=== PATIENT | female | born 1985 | race Caucasian/White ===

== ENCOUNTER 2018-05-14 04:21 | Inpatient (IN) | payer OTHER, SELFPAY ==
[~2018-05-14] VITALS: Ht 154.9 cm; Wt 88.5 kg
[2018-05-14] MEDS ORDERED: OXYTOCIN/0.9 % SODIUM CHLORIDE 1,000 ML IV SCH (12:45)
[2018-05-14] MEDS ORDERED: DINOPROSTONE 10 MG SUPP VG ONE (12:45)
[2018-05-14] MEDS ORDERED: NALBUPHINE HCL 10 MG/ML AMP IVP PRN (12:45)
[2018-05-14] MEDS ORDERED: TERBUTALINE SULFATE 1 MG/ML VIAL SUBCUT ONE (12:45)
[2018-05-14 12:52] VITALS: BP_SYST 127
[2018-05-14] MEDS ORDERED: AMPICILLIN SODIUM 2 GM in NS 100 ML IV ONE (13:00)
[2018-05-14 13:10] LABS: BASOPHILS # (AUTO) 0.1 K/uL (0.0-0.2); BASOPHILS % (AUTO) 0.9 % (0.0-2.0); EOSINOPHILS % (AUTO) 0.1 % (0.0-4.0); HEMOGLOBIN 11.3 g/dL (12.0-16.0); LYMPHOCYTES # (AUTO) 1.7 K/uL (1.0-5.5); LYMPHOCYTES % (AUTO) 26.8 % (20.5-51.5); MEAN CORPUSCULAR HEMOGLOBIN 32 pg (27-31); MEAN CORPUSCULAR HGB CONC 34 % (32-36); MEAN CORPUSCULAR VOLUME 92 fL (79.0-98.0); MONOCYTES # (AUTO) 0.4 K/uL (0.0-1.0); MONOCYTES % (AUTO) 6.6 % (1.7-9.3); NEUTROPHILS # (AUTO) 4.1 K/uL (1.8-7.7); NEUTROPHILS % (AUTO) 65.6 % (40.0-70.0); PLATELET COUNT (AUTO) 228 K/uL (130-430); RED BLOOD CELL COUNT(AUTO) 3.59 MIL/uL (4.2-6.2); WHITE BLOOD COUNT (AUTO) 6.3 K/uL (4.8-10.8)
[2018-05-14] MEDS: LR 1,000 ML IV SCH (20:30)
[2018-05-15] MEDS ORDERED: AMPICILLIN SODIUM 2 GM VIAL ONE (01:25)
[2018-05-15] MEDS: LR 1,000 ML IV SCH ×2 (04:30→08:30)
[2018-05-15] MEDS: AMPICILLIN SODIUM 1 GM in NS 50 ML IV SCH ×2 (05:30→09:30)
[2018-05-15] MEDS ORDERED: AMPICILLIN SODIUM 1 GM VIAL ONE (05:34)
[2018-05-15] MEDS ORDERED: fentaNYL CITRATE/PF 100 MCG/2 ML AMP ONE (08:07)
[2018-05-15] MEDS ORDERED: ROPIVACAINE 0.2% 100 ML ONE (08:08)
[2018-05-15] MEDS ORDERED: CEFAZOLIN 2 GM IVPB PREMIX 50 ML IV ONE (16:30)
[2018-05-15 16:35] LABS: BILIRUBIN,URINE NEGATIVE (NEGATIVE); BLOOD, URINE 2+ (NEGATIVE); CLARITY/URINE CLEAR (CLEAR); COLOR,URINE YELLOW (YELLOW); GLUCOSE,URINE NEGATIVE (NEGATIVE); KETONES,URINE 3+ (NEGATIVE); LEUKOCYTE ESTERASE ,URINE NEGATIVE (NEGATIVE); NITRITE, URINE NEGATIVE (NEGATIVE); PROTEIN URINE TRACE (NEGATIVE); UROBILINOGEN,URINE 0.2 (0.2-1.0)
[2018-05-15 16:44] LABS: BACTERIA,URINE FEW /HPF (None Seen); WBC,URINE 0-3 /HPF (0-3)
[2018-05-15 16:45] LABS: MUCUS,URINE None Seen /LPF (None Seen)
[2018-05-15] MEDS ORDERED: NACL 0.9% 1,000 ML IV SCH (17:48)
[2018-05-15] MEDS ORDERED: METOCLOPRAMIDE HCL 10 MG/2 ML VIAL IVP PRN (18:00)
[2018-05-15] MEDS ORDERED: DIPHENHYDRAMINE INJ 50 MG/ML VIAL IM PRN (18:00)
[2018-05-15] MEDS ORDERED: MEPERIDINE HCL/PF 50 MG/ML AMP IVP PRN ×2 (18:00)
[2018-05-15] MEDS ORDERED: ONDANSETRON HCL 4 MG/2 ML VIAL IVP PRN (18:00)
[2018-05-15] MEDS ORDERED: NALOXONE HCL 0.4 MG/ML AMP (NARCAN) IVP PRN (18:00)
[2018-05-15] MEDS ORDERED: KETOROLAC TROMETHAMINE 60 MG/2 ML VIAL IM PRN (18:00)
[2018-05-15] MEDS ORDERED: MORPHINE SULFATE 10MG/10ML PF AMP EP SCH (18:00)
[2018-05-15] MEDS ORDERED: LR 1,000 ML IV SCH (18:03)
[2018-05-15] MEDS ORDERED: OXYTOCIN/0.9 % SODIUM CHLORIDE 1,000 ML IV ONE (18:03)
[2018-05-15] MEDS ORDERED: RHO(D) IMMUNE GLOBULIN/MALTOSE 1500 UNITS/1.3 ML (WINHRO) IM PRN (18:15)
[2018-05-15] MEDS ORDERED: LANOLIN 7 GM OINT. TP PRN (18:15)
[2018-05-15] MEDS ORDERED: DOCUSATE SODIUM 100 MG CAPSULE PO PRN (18:15)
[2018-05-15] MEDS ORDERED: BISACODYL 10 MG/SUPPOSITORY RC PRN (18:15)
[2018-05-15] MEDS ORDERED: ANUSOL 1 EA SUPP.RECT (PREPARATION H) RC PRN (18:15)
[2018-05-15] MEDS ORDERED: SENNOSIDES/DOCUSATE SODIUM 1 TAB TABLET(SENOKOT-S) PO PRN (18:15)
[2018-05-15] MEDS ORDERED: MEASLES,MUMPS&RUBELLA VACC/PF 12500 UNIT/0.5 ML VIAL SUBQ PRN (18:15)
[2018-05-15 18:20] VITALS: BP_SYST 122
[2018-05-15] MEDS ORDERED: TEMAZEPAM 15 MG CAPSULE PO PRN (21:00)
[2018-05-16 07:07] LABS: HEMATOCRIT 26.6 % (36-48); HEMOGLOBIN 8.8 g/dL (12.0-16.0); LYMPHOCYTES % (AUTO) 16.7 % (20.5-51.5); MEAN CORPUSCULAR HEMOGLOBIN 31 pg (27-31); MEAN CORPUSCULAR HGB CONC 33 % (32-36); MEAN CORPUSCULAR VOLUME 93 fL (79.0-98.0); MONOCYTES % (AUTO) 8.2 % (1.7-9.3); NEUTROPHILS # (AUTO) 9.1 K/uL (1.8-7.7); NEUTROPHILS % (AUTO) 75.1 % (40.0-70.0); PLATELET COUNT (AUTO) 210 K/uL (130-430); RED BLOOD CELL COUNT(AUTO) 2.88 MIL/uL (4.2-6.2); RED CELL DISTRIBUTION WIDTH 14.5 % (9.0-15.0)
[2018-05-16 07:11] LABS: WHITE BLOOD COUNT (AUTO) 12.1 K/uL (4.8-10.8)
[2018-05-16] MEDS: SIMETHICONE 80 MG TAB.CHEW PO PRN ×3 (13:55→21:50)
[2018-05-16] MEDS ORDERED: OXYCODONE/ACETAMINOPHEN 5-325 TABLET PO PRN (14:00)
[2018-05-16] MEDS ORDERED: MORPHINE SULFATE 10MG/10ML PF AMP EP ONE (17:00)
[2018-05-16] MEDS ORDERED: LR 1,000 ML IV.SOLN IV ONE (17:00)
[2018-05-16] MEDS ORDERED: OXYTOCIN/0.9 % SODIUM CHLORIDE 20 UNITS/1,000 ML BAG IV ONE (17:00)
[2018-05-16] MEDS ORDERED: METHYLERGONOVINE MALEATE 0.2 MG/ML AMP IM ONE (17:00)
[2018-05-16] MEDS ORDERED: ONDANSETRON HCL 4 MG/2 ML VIAL IVP ONE (17:00)
[2018-05-16] MEDS ORDERED: LIDOCAINE 1% 10 MG/ML, 20 ML MDV INJ ONE (17:00)
[2018-05-16] MEDS ORDERED: WATER FOR IRRIGATION,STERILE 1,000 ML IRRIG.SOLN IR ONE (17:00)
[2018-05-16] MEDS: IBUPROFEN 600 MG TABLET PO SCH (18:10)
[2018-05-16] MEDS: OXYCODONE/ACETAMINOPHEN 5-325 TABLET PO PRN ×2 (18:11→21:50)
[2018-05-17] MEDS: SIMETHICONE 80 MG TAB.CHEW PO PRN (11:10)
[2018-05-17] MEDS: IBUPROFEN 600 MG TABLET PO SCH ×2 (11:30)
== END 2018-05-17 11:40 | disposition home or self-care (01) | DRG 786 ==
LOC: SPU 12:00
PROVIDERS: ADMIT Obstetrics & Gynecology; ATTEND Obstetrics & Gynecology
PROC: 10D00Z1 Extraction of Products of Conception, Low, Open Approach (ICD-10-PCS; principal; 2018-05-15 17:00)
DX: O76 Abnormality in fetal heart rate and rhythm complicating labor and delivery (principal); O41.1230 Chorioamnionitis, third trimester, not applicable or unspecified; O99.824 Streptococcus B carrier state complicating childbirth; Z3A.40 40 weeks gestation of pregnancy; Z37.0 Single live birth
CPT/HCPCS: 36415; 81000-TC; 85025; 86592; 86886; 86900; 86901; J0290; J0690; J1200; J1885; J2001; J2210; J2274; J2300; J2405; J2590; J2795; J3010; J7120